=== PATIENT | female | born 1990 | race African-American/Black ===

== ENCOUNTER 2017-06-23 12:05 | Emergency (ER) | payer OTHER, SELFPAY ==
[2017-06-23 14:00] LABS: #Basophils 0.1 thou/uL (0.0-0.2); #Eosinphils 0.1 thou/uL (0.0-0.7); #Lymphocytes 1.7 thou/uL (1.20-3.40); #Monocytes 0.4 thou/uL (0.11-0.59); #Neutrophils 2.4 thou/uL (1.40-6.50); %Basophils 1.7 % (0.0-1.0); %Eosinophils 1.5 % (0.0-10.0); %Lymphocytes 37.2 % (21.0-51.0); Hematocrit 41.4 % (36.0-47.0); Mean Platelet Volume 6.1 fL (7.4-10.4); White Blood Cell (WBC) Count 4.6 thou/uL (4.8-10.8)
[2017-06-23 14:13] LABS: Bilirubin Negative (Negative); Blood, Urine Negative (Negative); Glucose, Urine (Dipstick) >=1000 mg/dL (Negative); Ketone, Urine Negative (Negative); Nitrite Negative (Negative); Protein, Urine (Dipstick) Negative (Neg-Trace)
[2017-06-23 14:26] LABS: ALT (SGPT) 13 U/L (8-55); AST (SGOT) 18 U/L (5-34); Alkaline Phosphatase 56 U/L (40-150); Anion Gap 8 mmol/L (10-20); BUN (Urea Nitrogen) 8 mg/dL (7.0-18.7); Bilirubin, Total 1.3 mg/dL (0.2-1.2); Calc. Creatinine Clearance 0 mL/min (70-130); Calcium 9.4 mg/dL (7.8-10.44); Carbon Dioxide 31 mmol/L (22-29); Chloride 102 mmol/L (98-107); Estimated GFR-MDRD Greater than 90; Globulin 3.2 g/dL (2.4-3.5); Protein, Total 7.4 g/dL (6.0-8.3)
[2017-06-23] MEDS ORDERED: Fluconazole 100 MG TAB PO SCH (14:30)
== END 2017-06-23 15:08 | disposition home or self-care (01) ==
LOC: ERS 12:05
DX: B37.3 Candidiasis of vulva and vagina (principal); E10.9 Type 1 diabetes mellitus without complications
CPT/HCPCS: 36415; 36416; 80053; 81003; 81025; 82010; 85025; 87480; 87491; 87510; 87591; 87660; 99283

== ENCOUNTER 2019-08-15 07:33 | Emergency (ER) | payer SELFPAY ==
[2019-08-15] MEDS ORDERED: Lidocaine 2% PF 5 ML VIAL ONE (08:25)
== END 2019-08-15 09:38 | disposition home or self-care (01) ==
LOC: ERS 07:33
DX: L02.31 Cutaneous abscess of buttock (principal); E10.9 Type 1 diabetes mellitus without complications
CPT/HCPCS: 10060; J2001

== ENCOUNTER 2019-10-09 08:27 | Emergency (ER) | payer OTHER ==
[2019-10-09] MEDS ORDERED: Lidocaine 1% (PF) 30 ML VIAL ONE (09:05)
== END 2019-10-09 09:15 | disposition home or self-care (01) ==
LOC: ERS 08:27
DX: L02.31 Cutaneous abscess of buttock (principal); E10.9 Type 1 diabetes mellitus without complications
CPT/HCPCS: 10060; J2001

== ENCOUNTER 2019-12-26 11:21 | Emergency (ER) | payer OTHER, SELFPAY ==
[2019-12-26 12:06] LABS: Bilirubin Negative (Negative); Blood, Urine Negative (Negative); Clarity Clear (Clear); Glucose, Urine (Dipstick) Greater than 1000 mg/dL (Negative); Leukocyte Negative Leu/uL (Negative); Nitrite Negative (Negative); Protein, Urine (Dipstick) Negative (Neg-Trace); Urobilinogen Normal mg/dL (Less than 2)
[2019-12-26 12:21] LABS: Pregnancy Test - Urine (BHCG) Negative (Negative); Pregu Control Background? CLEAR/WHITE (CLR/WHITE); Pregu Control Bar Appear? YES (CONTROL BAR); Specific Gravity 1.038 (1.002-1.036)
== END 2019-12-26 13:08 | disposition home or self-care (01) ==
LOC: ERS 11:21
DX: N89.8 Other specified noninflammatory disorders of vagina (principal); E10.9 Type 1 diabetes mellitus without complications
CPT/HCPCS: 81003; 81025; 87480; 87491; 87510; 87591; 87660; 99283

== ENCOUNTER 2020-02-23 09:51 | Emergency (ER) | payer SELFPAY ==
[2020-02-23] MEDS ORDERED: Cephalexin 250 MG CAP ONE (10:19)
[2020-02-23] MEDS ORDERED: Sulfameth/Trimethoprim DS 800-160mg TAB ONE (10:19)
== END 2020-02-23 11:20 | disposition home or self-care (01) ==
LOC: ERS 09:51
DX: L02.31 Cutaneous abscess of buttock (principal); E10.9 Type 1 diabetes mellitus without complications; Z79.899 Other long term (current) drug therapy
CPT/HCPCS: 10060; 87070; 87205

== ENCOUNTER 2020-03-07 23:15 | Emergency (ER) | payer SELFPAY | END 2020-03-07 23:50 | disposition home or self-care (01) | LOC: ERS 23:15 | DX: B37.0 Candidal stomatitis (principal); E10.9 Type 1 diabetes mellitus without complications | CPT/HCPCS: 87081; 87430; 99283 ==

== ENCOUNTER 2020-03-29 03:31 | Emergency (ER) | payer SELFPAY ==
[2020-03-29] MEDS ORDERED: Lidocaine 1% (PF) 30 ML VIAL ONE (03:39)
== END 2020-03-29 04:04 | disposition home or self-care (01) ==
LOC: ERS 03:31
DX: L02.31 Cutaneous abscess of buttock (principal); E10.9 Type 1 diabetes mellitus without complications
CPT/HCPCS: 10060; J2001

== ENCOUNTER 2020-04-29 18:28 | Emergency (ER) | payer SELFPAY ==
[2020-04-29 20:09] LABS: #Basophils 0.1 thou/uL (0.0-0.2); #Eosinphils 0.1 thou/uL (0.0-0.7); #Lymphocytes 2.2 thou/uL (1.20-3.40); #Monocytes 0.5 thou/uL (0.11-0.59); #Neutrophils 2.2 thou/uL (1.40-6.50); %Basophils 1.1 % (0.0-1.0); %Eosinophils 2.4 % (0.0-10.0); %Lymphocytes 43.5 % (21.0-51.0); %Monocytes 9.4 % (0.0-10.0); %Neutrophils 43.7 % (42.0-75.0); Mean Corpuscular HGB CONC 33.6 g/dL (32.0-36.0); Mean Corpuscular Hemoglobin 30.2 pg (27.0-31.0); Mean Corpuscular Volume 89.8 fL (78.0-98.0); Mean Platelet Volume 6.8 fL (7.4-10.4); Platelet Count 367 thou/uL (130-400); RBC Distribution Width 10.8 % (11.5-14.5); White Blood Cell (WBC) Count 5.1 thou/uL (4.8-10.8)
[2020-04-29 20:30] LABS: ALT (SGPT) 11 U/L (8-55); AST (SGOT) 14 U/L (5-34); Albumin 4.6 g/dL (3.5-5.0); Alkaline Phosphatase 68 U/L (40-110); Anion Gap 15 mmol/L (10-20); BUN (Urea Nitrogen) 14 mg/dL (7.0-18.7); Calc. Creatinine Clearance 0 mL/min (70-130); Carbon Dioxide 27 mmol/L (22-29); Chloride 97 mmol/L (98-107); Estimated GFR-MDRD 74; Globulin 3.6 g/dL (2.4-3.5); Glucose 326 mg/dL (70-105); Magnesium 1.8 mg/dL (1.6-2.6); Phosphorus 3.5 mg/dL (2.3-4.7); Potassium 3.6 mmol/L (3.5-5.1); Protein, Total 8.2 g/dL (6.0-8.3); Sodium 135 mmol/L (136-145)
[2020-04-29 20:39] LABS: Bacteria/HPF None Seen HPF (None Seen); Bilirubin Negative (Negative); Blood, Urine Negative (Negative); Clarity Clear (Clear); Glucose, Urine (Dipstick) Greater than 1000 mg/dL (Negative); Ketone, Urine Negative (Negative); Leukocyte Negative Leu/uL (Negative); Nitrite Negative (Negative); Protein, Urine (Dipstick) 50 mg/dL (Neg-Trace); RBC/HPF 0-3 HPF (0-3); Specific Gravity, Urine 1.043 (1.002-1.036); Squamous Epithelial 0-3 HPF (0-3); Urobilinogen Normal mg/dL (Less than 2); WBC/HPF 0-3 HPF (0-3); pH, Urine 5.5 (5.0-9.0)
[2020-04-29 20:41] LABS: Pregnancy Test - Urine (BHCG) Negative (Negative); Pregu Control Background? CLEAR/WHITE (CLR/WHITE); Pregu Control Bar Appear? YES (CONTROL BAR); Specific Gravity 1.043 (1.002-1.036)
[2020-04-30 20:07] LABS: Chlamydia by PCR Not Detected (NotDetected); GC by PCR Not Detected (NotDetected)
== END 2020-04-29 21:12 | disposition home or self-care (01) ==
LOC: ERS 18:28
DX: B37.3 Candidiasis of vulva and vagina (principal); E10.65 Type 1 diabetes mellitus with hyperglycemia
CPT/HCPCS: 36415; 36416; 80053; 81003; 81015; 81025; 82010; 83735; 84100; 85025; 87480; 87491; 87510; 87591; 87660; 99283

== ENCOUNTER 2020-06-21 14:00 | Emergency (ER) | payer SELFPAY ==
[2020-06-21] MEDS ORDERED: Lidocaine 1% w/Epinephrine 1:100K 20 ML VIAL ONE (14:48)
== END 2020-06-21 15:31 | disposition home or self-care (01) ==
LOC: ERS 14:00
DX: L02.31 Cutaneous abscess of buttock (principal); E10.9 Type 1 diabetes mellitus without complications; Z87.891 Personal history of nicotine dependence
CPT/HCPCS: 10061

== ENCOUNTER 2020-09-13 07:29 | Emergency (ER) | payer SELFPAY ==
[2020-09-13] MEDS ORDERED: Lidocaine 1% PF 5 ML VIAL ONE (08:26)
== END 2020-09-13 09:07 | disposition home or self-care (01) ==
LOC: ERS 07:29
DX: L02.31 Cutaneous abscess of buttock (principal); E10.9 Type 1 diabetes mellitus without complications; Z87.891 Personal history of nicotine dependence; Z79.4 Long term (current) use of insulin
CPT/HCPCS: 10060

== ENCOUNTER 2021-01-16 03:18 | Emergency (ER) | payer BC, MEDICAID ==
[2021-01-16] MEDS ORDERED: Lidocaine 1% w/Epinephrine 1:100K 20 ML VIAL ONE (03:40)
[2021-01-16] MEDS ORDERED: Bupivacaine 0.5% 10 ML VIAL ONE (03:42)
== END 2021-01-16 04:12 | disposition home or self-care (01) ==
LOC: ERS 03:18
DX: L02.31 Cutaneous abscess of buttock (principal); E10.9 Type 1 diabetes mellitus without complications; Z87.891 Personal history of nicotine dependence
CPT/HCPCS: 10060; J3490

== ENCOUNTER 2021-06-16 08:03 | Emergency (ER) | payer MEDICAID, SELFPAY | END 2021-06-16 09:22 | disposition home or self-care (01) | LOC: ERS 08:03 | DX: M79.605 Pain in left leg (principal); E10.9 Type 1 diabetes mellitus without complications; F17.290 Nicotine dependence, other tobacco product, uncomplicated ==

== ENCOUNTER 2022-03-07 08:09 | Emergency (ER) | payer SELFPAY | END 2022-03-07 08:40 | disposition home or self-care (01) | LOC: ERS 08:09 | DX: U07.1 COVID-19 (principal); E10.9 Type 1 diabetes mellitus without complications; F17.290 Nicotine dependence, other tobacco product, uncomplicated; Z79.4 Long term (current) use of insulin | CPT/HCPCS: 99283; U0003; U0005 ==

== ENCOUNTER 2022-03-15 18:48 | Emergency (ER) | payer SELFPAY | END 2022-03-15 19:14 | disposition home or self-care (01) | LOC: ERS 18:48 | DX: L02.31 Cutaneous abscess of buttock (principal); E10.9 Type 1 diabetes mellitus without complications; F17.290 Nicotine dependence, other tobacco product, uncomplicated | CPT/HCPCS: 99283 ==

== ENCOUNTER 2022-07-01 10:30 | Emergency (ER) | payer SELFPAY | END 2022-07-01 11:27 | disposition home or self-care (01) | LOC: ERS 10:30 | DX: B34.9 Viral infection, unspecified (principal); E10.9 Type 1 diabetes mellitus without complications; F17.290 Nicotine dependence, other tobacco product, uncomplicated | CPT/HCPCS: 87804; 99283 ==

== ENCOUNTER 2022-10-12 18:43 | Emergency (ER) | payer SELFPAY ==
[2022-10-12 19:29] LABS: Bilirubin Negative (Negative); Blood, Urine Negative (Negative); Clarity Clear (Clear); Glucose, Urine (Dipstick) Greater than 1000 mg/dL (Negative); Ketone, Urine Negative (Negative); Leukocyte Negative Leu/uL (Negative); Nitrite Negative (Negative); Protein, Urine (Dipstick) Negative (Neg-Trace); Specific Gravity, Urine 1.027 (1.002-1.036); Urobilinogen Normal mg/dL (Less than 2); pH, Urine 6.5 (5.0-9.0)
[2022-10-12 19:59] LABS: #Eosinphils 0.1 thou/uL (0.0-0.7); #Lymphocytes 1.8 thou/uL (1.20-3.40); #Monocytes 0.4 thou/uL (0.11-0.59); %Basophils 0.6 % (0.0-1.0); %Eosinophils 2.8 % (0.0-10.0); %Lymphocytes 41.7 % (21.0-51.0); %Monocytes 8.9 % (0.0-10.0); Hemoglobin 12.6 g/dL (12.0-16.0); Mean Corpuscular HGB CONC 33.1 g/dL (32.0-36.0); Mean Corpuscular Hemoglobin 30.6 pg (27.0-31.0); Mean Corpuscular Volume 92.6 fl (78.0-98.0); Platelet Count 292 10x3/uL (130-400); RBC Distribution Width 10.3 % (11.5-14.5); Red Blood Cell (RBC) Count 4.13 mill/uL (4.20-5.40); White Blood Cell (WBC) Count 4.3 10x3/uL (4.8-10.8)
[2022-10-12 20:03] LABS: BHCG - Serum Negative (NEGATIVE); Pregs Control Background? CLEAR/WHITE (CLR/WHITE); Pregs Control Bar Appear? YES (CONTROL BAR)
[2022-10-12 20:25] LABS: ALT (SGPT) 7 U/L (8-55); AST (SGOT) 11 U/L (5-34); Alkaline Phosphatase 53 U/L (40-110); Anion Gap 10 mmol/L (10-20); BUN (Urea Nitrogen) 9 mg/dL (7.0-18.7); Calc. Creatinine Clearance 0 mL/min (70-130); Calcium 9.1 mg/dL (7.8-10.44); Carbon Dioxide 27 mmol/L (22-29); Chloride 102 mmol/L (98-107); Estimated GFR 109; Globulin 2.7 g/dL (2.4-3.5); Glucose 222 mg/dL (70-105); Potassium 4.5 mmol/L (3.5-5.1); Protein, Total 6.7 g/dL (6.0-8.3); Sodium 134 mmol/L (136-145)
== END 2022-10-12 22:34 | disposition home or self-care (01) ==
LOC: ERS 18:43
DX: B37.31 Acute candidiasis of vulva and vagina (principal); E10.65 Type 1 diabetes mellitus with hyperglycemia; Z79.4 Long term (current) use of insulin
CPT/HCPCS: 36415; 36416; 80053; 81003; 84703; 85025; 99283

== ENCOUNTER 2024-08-31 18:03 | Emergency (ER) | payer SELFPAY ==
[2024-08-31 19:48] LABS: #Basophils Less than 0.03 10x3/uL (0.0-0.2); %Basophils 0.3 % (0.0-1.0); %Eosinophils 0.5 % (0.0-10.0); %Lymphocytes 21.3 % (21.0-51.0); %Monocytes 10.7 % (0.0-10.0); %Neutrophils 66.9 % (42.0-75.0); Hematocrit 35.3 % (36.0-47.0); Hemoglobin 11.4 g/dL (12.0-16.0); Mean Corpuscular HGB CONC 32.3 g/dL (32.0-36.0); Mean Corpuscular Hemoglobin 29.4 pg (27.0-31.0); Mean Platelet Volume 8.8 fL (7.4-10.4); Platelet Count 342 10x3/uL (130-400); RBC Distribution Width 11.1 % (11.5-14.5); Red Blood Cell (RBC) Count 3.88 mill/uL (4.20-5.40)
[2024-08-31 19:55] LABS: ALT (SGPT) 9 U/L (8-55); AST (SGOT) 14 U/L (5-34); Albumin 3.8 g/dL (3.5-5.0); Alkaline Phosphatase 40 U/L (40-110); Anion Gap 12 mmol/L (10-20); BUN (Urea Nitrogen) 12 mg/dL (7.0-18.7); Bilirubin, Total 0.8 mg/dL (0.2-1.2); Calc. Creatinine Clearance 0 mL/min (70-130); Calcium 9.2 mg/dL (7.8-10.44); Carbon Dioxide 26 mmol/L (22-29); Chloride 104 mmol/L (98-107); Estimated GFR 118; Glucose 71 mg/dL (70-105); Potassium 3.9 mmol/L (3.5-5.1); Protein, Total 6.8 g/dL (6.0-8.3); Sodium 138 mmol/L (136-145)
== END 2024-08-31 21:03 | disposition home or self-care (01) ==
LOC: ERS 18:03
DX: E10.649 Type 1 diabetes mellitus with hypoglycemia without coma (principal); F17.290 Nicotine dependence, other tobacco product, uncomplicated
CPT/HCPCS: 36415; 36416; 80053; 85025; 99283

== ENCOUNTER 2025-05-19 21:26 | Emergency (ER) | payer BC, SELFPAY ==
[2025-05-19] MEDS ORDERED: Lidocaine 1% w/Epinephrine 1:100K 20 ML VIAL ONE (22:44)
== END 2025-05-19 23:41 | disposition home or self-care (01) ==
LOC: ERS 21:26
DX: L02.31 Cutaneous abscess of buttock (principal); E10.9 Type 1 diabetes mellitus without complications; F17.290 Nicotine dependence, other tobacco product, uncomplicated
CPT/HCPCS: 10060